=== PATIENT | male | born 1975 | race Caucasian/White ===

== ENCOUNTER 2024-02-05 08:32 | Emergency (ER) | payer OTHER ==
[2024-02-05 08:58] VITALS: BP 131/90; PULSE 76; RESP 20; TEMP 98.6; BMI 31.0
[2024-02-05] MEDS ORDERED: LIDOCAINE VISCOUS 2% ORAL/TOP 15 ML UNIT-DOSE CUP MM ONE (13:11)
[2024-02-05] MEDS ORDERED: LIDOCAINE VISCOUS 2% ORAL/TOP 100 ML BOTTLE ONE (13:14)
== END 2024-02-05 13:20 | disposition home or self-care (01) ==
LOC: FER 08:32
DX: R07.0 Pain in throat (principal)
CPT/HCPCS: 70360-TC-FY; 70490-TC; 99284-25